=== PATIENT | female | born 1965 | race Caucasian/White ===

== ENCOUNTER 2019-11-12 00:20 | Day surgery (SDC) | payer OTHER, SELFPAY ==
[2019-11-10 13:47] VITALS: BMI 24.5
[2019-11-12 07:49] VITALS: BP 155/83; PULSE 80; RESP 18; TEMP 36.7; O2SAT 100
--- NOTE | 2019-11-12 07:56 | P.HP_ITS ---
History of Present Illness History of Present Illness Consent: Risks, benefits, and alternatives have been discussed and questions answered. Patient agrees to proceed with procedure. Chief complaint: Neoplasm Screening Narrative: Lupe Maxwell is a 54 year old W female referred for screening colonoscopy secondary to family history of colon polyps in her mother. She states her father had melanoma of the colon. Patient is asymptomatic. Her last colonoscopy was 5 years ago no polyps were seen. I also recommended the patient stop the Zantac and switched to Pepcid. PMFSH Surgical History Surgical History [place] teeth extracted Meds Home Medications and Allergies Home Medications Medication Instructions Recorded Confirmed Type bupropion HCl 150 mg PO BID 11/10/19 11/10/19 History estrogens-methyltestosterone 1 tablet PO DAILY 11/10/19 11/10/19 History medroxyprogesterone 2.5 mg PO DAILY 11/10/19 11/10/19 History pseudoephedrine HCl [Sudafed 12 120 mg PO Q12H 11/10/19 11/10/19 History Hour] ranitidine HCl 150 mg PO DAILY 11/10/19 11/10/19 History valacyclovir 500 mg PO DAILY 11/10/19 11/10/19 History Allergies Allergy/AdvReac Type Severity Reaction Status Date / Time latex Allergy Unknown Flushing Verified 11/12/19 07:58 tetracycline Allergy Unknown Vomiting Verified 11/12/19 07:58 ZOMAX Allergy Severe BLEEDING Uncoded 11/12/19 07:58 CODIENE AdvReac Unknown NAUSEA & Uncoded 11/12/19 07:58 VOMITING Vital Signs Vital Signs - 24 hr 11/12/19 07:49 Temperature 36.7 C Pulse Rate 80 Respiratory Rate 18 Blood Pressure 155/83 H Pulse Oximetry 100 Exam Const: Orientation/consciousness: patient oriented x3 Resp: Auscultation: clear to auscultation bilaterally Cardio: Rate: regular rate Rhythm: regular rhythm Heart sounds: no murmurs GI: GI Palp: Yes Soft to palpation, No Tenderness to palpation present (GI), Yes No hepatosplenomegaly present and No Palpable mass present Auscultation: normal bowel sounds Neuro: General: patient oriented x3 and no focal motor deficits Extrem: General: no pedal edema Assessment and Plan Additional Plan Screening colonoscopy secondary family history of colon polyps
--- NOTE | 2019-11-12 07:59 | P.PNAN_ITS ---
Anes - Initial Pre Proc Eval Procedure: Operation Date: 11/12/19 09:00 Proposed Procedures p Screening Colonoscopy - Gustavo Tinoco MD Date/Time: 11/12/19 07:59 Surgeon: Gustavo Tinoco MD Pre Op Diagnosis: Neoplasm Screening Patient Data Age: 54 Gender: F Height: 1.6 m Weight: 64 kg Last Vital Signs Temp 36.7 C 11/12/19 07:49 Pulse 80 11/12/19 07:49 Resp 18 11/12/19 07:49 BP 155/83 H 11/12/19 07:49 Pulse Ox 100 11/12/19 07:49 Allergies Allergy/AdvReac Type Severity Reaction Status Date / Time latex Allergy Unknown Flushing Verified 11/12/19 07:58 tetracycline Allergy Unknown Vomiting Verified 11/12/19 07:58 ZOMAX Allergy Severe BLEEDING Uncoded 11/12/19 07:58 CODIENE AdvReac Unknown NAUSEA & Uncoded 11/12/19 07:58 VOMITING Home Medications Medication Instructions Recorded Confirmed Type bupropion HCl 150 mg PO BID 11/10/19 11/12/19 History estrogens-methyltestosterone 1 tablet PO DAILY 11/10/19 11/10/19 History medroxyprogesterone 2.5 mg PO DAILY 11/10/19 11/10/19 History pseudoephedrine HCl [Sudafed 12 120 mg PO Q12H 11/10/19 11/10/19 History Hour] ranitidine HCl 150 mg PO DAILY 11/10/19 11/10/19 History valacyclovir 500 mg PO DAILY 11/10/19 11/12/19 History Patient hx anesthesia problems: none Family hx anesthesia problems: none PMFSH Past Medical History Medical History (Updated 11/12/19 @ 08:00 by Jon Maldonado MD) Depression Surgical History Surgical History [place] teeth extracted Anes - Eval Final PreProcedure Day of Procedure 11/12/19 07:59 Patient weight: normal Heart: regular rate and rhythm Lungs: clear to auscultation and normal air movement Airway: Mallampati scale class II Neurological: alert and oriented Last oral intake: >/= 8 hours ASA classification: II Emergent: no Anesthetic plan: proceed Anesthesia type and monitoring: general GIVS Informed Consent: The patient's anesthetic plan and its attendant risks and benefits were discussed with the patient/family/POA. Questions were solicited an d answers provided to the satisfaction of the patient/family/POA.
[2019-11-12] MEDS: LACTATED RINGERS 1,000 ML 150 ML IV CONT (08:14)
[2019-11-12 09:11] VITALS: BP 88/53; PULSE 78; RESP 20; O2SAT 99
[2019-11-12 09:21] VITALS: BP 113/79; PULSE 78; RESP 30; O2SAT 100
[2019-11-12 09:31] VITALS: BP 120/78; PULSE 74; RESP 20; O2SAT 100
== END 2019-11-12 09:45 | disposition home or self-care (01) ==
PROVIDERS: PCP Family Medicine; Visit Provider Internal Medicine Gastroenterology
PROC: 0DJD8ZZ Inspection of Lower Intestinal Tract, Via Natural or Artificial Opening Endoscopic (ICD-10-PCS; CPT 45378; principal; 2019-11-12 09:00)
DX: Z12.11 Encounter for screening for malignant neoplasm of colon (principal); K63.5 Polyp of colon; Z83.71 Family history of colonic polyps; F32.9 Major depressive disorder, single episode, unspecified
CPT/HCPCS: 45380; 88305; J2704; J7120

== ENCOUNTER 2020-05-19 07:56 | Outpatient (CLI) | payer OTHER, SELFPAY ==
--- NOTE | ~2020-05-19 | MM_ITS ---
EXAMINATION: MM screening [facility] w macy HISTORY: Screening TECHNIQUE: Craniocaudal and mediolateral oblique 3-D tomosynthesis images were obtained and synthetic 2-D images were generated. CAD analysis was submitted and interpreted. COMPARISON: Comparison to multiple prior studies sequentially, with oldest reviewed study dated 10/2013. BREAST PARENCHYMAL COMPOSITION: The breasts are heterogeneously dense, which may obscure small masses . FINDINGS: There is no evidence of suspicious mass, calcification, or architectural distortion to sugg est malignancy in either breast. There has been no suspicious interval change. IMPRESSION: 1. No mammographic evidence of malignancy. 2. Recommend routine screening mammography in one year. BI-RADS Category 1: Negative Reviewed, dictated and finalized at location A.
== END 2020-05-19 07:57 | disposition home or self-care (01) ==
PROVIDERS: PCP Family Medicine; Visit Provider Family Medicine
DX: Z12.31 Encounter for screening mammogram for malignant neoplasm of breast (principal)
CPT/HCPCS: 77063; 77067

== ENCOUNTER 2021-06-01 07:12 | Outpatient (CLI) | payer OTHER, SELFPAY ==
--- NOTE | ~2021-06-01 | MM_ITS ---
EXAMINATION: MM screening [facility] BI w macy HISTORY: Screening mammogram TECHNIQUE: Craniocaudal and mediolateral oblique 3-D tomosynthesis images were obtained and synthetic 2-D images were generated. CAD analysis was submitted and interpreted. COMPARISON: Serial mammographic examinations dating back to 03/28/2017 BREAST PARENCHYMAL COMPOSITION: The breasts are heterogeneously dense, which may obscure small masses . FINDINGS: There is no evidence of suspicious mass, calcification, or architectural distortion to sugg est malignancy in either breast. There has been no suspicious interval change. IMPRESSION: 1. No mammographic evidence of malignancy. 2. Recommend routine screening mammography in one year. BI-RADS Category 1: Negative Reviewed, dictated and finalized at location A.
== END 2021-06-01 07:13 | disposition home or self-care (01) ==
LOC: ANHIMG 07:14
PROVIDERS: PCP Family Medicine; Visit Provider Family Medicine
DX: Z12.31 Encounter for screening mammogram for malignant neoplasm of breast (principal)
CPT/HCPCS: 77063; 77067

== ENCOUNTER 2022-08-09 08:09 | Outpatient (CLI) | payer OTHER, SELFPAY ==
--- NOTE | ~2022-08-09 | MM_ITS ---
EXAMINATION: MM screening [facility] BI w macy HISTORY: Screening mammogram TECHNIQUE: Craniocaudal and mediolateral oblique 3-D tomosynthesis images were obtained and synthetic 2-D images were generated. CAD analysis was submitted and interpreted. COMPARISON: 06/01/2021, 05/19/2020, 04/23/2019 BREAST PARENCHYMAL COMPOSITION: The breasts are heterogeneously dense, which may obscure small masses . FINDINGS: No suspicious mass, calcification, or architectural distortion are identified in either liane ast to suggest malignancy. There has been no suspicious interval change. IMPRESSION: 1. No mammographic evidence of malignancy. 2. Recommend routine screening mammography in one year. BI-RADS Category 1: Negative Reviewed, dictated and finalized at location A. 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
== END 2022-08-09 08:10 | disposition home or self-care (01) ==
LOC: ANHIMG 08:10
PROVIDERS: PCP Family Medicine; Visit Provider Family Medicine
DX: Z12.31 Encounter for screening mammogram for malignant neoplasm of breast (principal)
CPT/HCPCS: 77063; 77067

== ENCOUNTER 2023-05-16 02:59 | Day surgery (SDC) | payer OTHER, SELFPAY ==
[2023-05-07 11:04] VITALS: BMI 24.2
--- NOTE | 2023-05-15 13:54 | P.HP_ITS ---
History of Present Illness History of Present Illness Consent: Risks, benefits, and alternatives have been discussed and questions answered. Patient agrees to proceed with procedure. Chief complaint: neoplasm screening Narrative: Lupe Maxwell is a 57 year old female Here for follow-up of an adenomatous polyp. Three years ago she underwent colonoscopy and was found apparently to have polypoid thickening of appendiceal orifice. Biopsies were obtained that d id confirm polypoid tissue consistent with SSA. Review of Systems Review of Systems: All systems reviewed & are unremarkable except as noted in HPI and below PMFSH Past Medical History Medical History Depression History of asthma Surgical History Surgical History H/O colonoscopy [place] teeth extracted Family History Family History Father Hypertension Lung cancer Malignant neoplasm of prostate COPD (chronic obstructive pulmonary disease) Mother Heart disease History of colon resection History of hypothyroidism Grandparent Lung cancer Bone cancer Unknown Hypertension Social History Social History Smoking status: Former smoker Tobacco type: cigarettes Alcohol intake: current Drinks per week: 6 Alcohol use details: 2 glasses of wine a few times a week Substance use: never Substance use type: does not use Living arrangements: with family Occupation/Education: occupation 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 Gender identity (if verbalized by the patient): Female Spiritual care concerns: No Meds Home Medications and Allergies Home Medications Medication Instructions Recorded Confirmed Type bupropion HCl 150 mg tablet,12 hr 150 mg PO BID 11/10/19 05/07/23 History sustained-release valacyclovir 500 mg tablet 500 mg PO DAILY 11/10/19 05/07/23 History cimetidine 200 mg tablet 200 mg PO DAILY 05/07/23 05/07/23 History fexofenadine 180 mg tablet 180 mg PO DAILY 05/07/23 05/07/23 History valsartan 160 1 tablet PO DAILY 05/07/23 05/07/23 History mg-hydrochlorothiazide 12.5 mg tablet Allergies Allergy/AdvReac Type Severity Reaction Status Date / Time latex Allergy Unknown Flushing Verified 05/16/23 06:47 tetracycline Allergy Unknown Vomiting Verified 05/16/23 06:47 ZOMAX Allergy Severe BLEEDING Uncoded 05/16/23 06:47 CODIENE AdvReac Unknown NAUSEA & Uncoded 05/16/23 06:47 VOMITING Exam Const: General: alert Orientation/consciousness: patient oriented x3 Resp: Auscultation: clear to auscultation bilaterally Cardio: Rhythm: regular rhythm GI: GI Palp: Yes Soft to palpation and No Tenderness to palpation present (GI) Neuro: General: patient oriented x3 Assessment and Plan Assessment and plan (1) Personal history of colonic polyps: Code(s): Z86.010 - Personal history of colonic polyps Status: Acute Assessment and Plan: Colonoscopy with possible biopsy or polypectomy or cautery or injection of substances.
[2023-05-16 06:48] VITALS: BP 144/80; PULSE 71; RESP 20; TEMP 36.2; O2SAT 100
[2023-05-16] MEDS: LACTATED RINGERS 1,000 ML 150 ML IV CONT (07:07)
--- NOTE | 2023-05-16 07:31 | WPDANESEPPF ---
Anes - Initial Pre Proc Eval Procedure: Operation Date: 05/16/23 08:00 Proposed Procedures p Screening Colonoscopy - Brice Salcedo MD Date/Time: 05/16/23 07:31 Surgeon: Brice Salcedo MD Pre Op Diagnosis: neoplasm screening Patient Data Age: 57 Gender: F Height: 1.6 m Weight: 62 kg Last Vital Signs Temp 97.1 F L 05/16/23 06:48 Pulse 71 05/16/23 06:48 Resp 20 05/16/23 06:48 BP 144/80 H 05/16/23 06:48 Pulse Ox 100 05/16/23 06:48 O2 Del Method Room Air 05/16/23 06:48 Allergies Allergy/AdvReac Type Severity Reaction Status Date / Time latex Allergy Unknown Flushing Verified 05/16/23 06:47 tetracycline Allergy Unknown Vomiting Verified 05/16/23 06:47 ZOMAX Allergy Severe BLEEDING Uncoded 05/16/23 06:47 CODIENE AdvReac Unknown NAUSEA & Uncoded 05/16/23 06:47 VOMITING Home Medications Medication Instructions Recorded Confirmed Type bupropion HCl 150 mg tablet,12 hr 150 mg PO BID 11/10/19 05/07/23 History sustained-release valacyclovir 500 mg tablet 500 mg PO DAILY 11/10/19 05/07/23 History cimetidine 200 mg tablet 200 mg PO DAILY 05/07/23 05/07/23 History fexofenadine 180 mg tablet 180 mg PO DAILY 05/07/23 05/07/23 History valsartan 160 1 tablet PO DAILY 05/07/23 05/07/23 History mg-hydrochlorothiazide 12.5 mg tablet Patient hx anesthesia problems: none Family hx anesthesia problems: none Results Review: All pre-operative results and documents have been reviewed as part of the pre-operative evaluation. PMFSH Past Medical History Medical History Depression History of asthma Surgical History Surgical History H/O colonoscopy [place] teeth extracted Family History Family History Father Hypertension Lung cancer Malignant neoplasm of prostate COPD (chronic obstructive pulmonary disease) Mother Heart disease History of colon resection History of hypothyroidism Grandparent Lung cancer Bone cancer Unknown Hypertension Social History Social History Smoking status: Former smoker Tobacco type: cigarettes Alcohol intake: current Drinks per week: 6 Alcohol use details: 2 glasses of wine a few times a week Substance use: never Substance use type: does not use Living arrangements: with family Occupation/Education: occupation 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 Informed Consent: The patient's anesthetic plan and its attendant risks and benefits were discussed with the patient/family/POA. Questions were solicited and answers provided to the satisfaction of the patient/family/POA.
[2023-05-16 08:10] VITALS: BP 104/64; PULSE 72; RESP 25; O2SAT 98
[2023-05-16 08:20] VITALS: BP 119/69; PULSE 74; RESP 19; O2SAT 100
[2023-05-16 08:30] VITALS: BP 121/80; PULSE 68; RESP 19; O2SAT 100
== END 2023-05-16 08:34 | disposition home or self-care (01) ==
PROVIDERS: PCP Family Medicine; Visit Provider Internal Medicine Gastroenterology
PROC: 0DJD8ZZ Inspection of Lower Intestinal Tract, Via Natural or Artificial Opening Endoscopic (ICD-10-PCS; CPT 45378; principal; 2023-05-16 08:00)
DX: Z12.11 Encounter for screening for malignant neoplasm of colon (principal); Z86.010 Personal history of colon polyps; Z80.0 Family history of malignant neoplasm of digestive organs; F32.A Depression, unspecified; Z87.891 Personal history of nicotine dependence
CPT/HCPCS: 45378; J2371; J7120

== ENCOUNTER → 2023-08-15 15:59 | Outpatient (CLI) | payer OTHER, SELFPAY ==
--- NOTE | ~2023-08-15 | MM_ITS ---
EXAMINATION: MM screening [facility] BI w macy HISTORY: Screening TECHNIQUE: Craniocaudal and mediolateral oblique 3-D tomosynthesis images were obtained and synthetic 2-D images were generated. CAD analysis was submitted and interpreted. COMPARISON: Comparison to multiple prior studies sequentially, with oldest reviewed study dated 03/28. BREAST PARENCHYMAL COMPOSITION: . The breasts are heterogeneously dense, which may obscure small mass es FINDINGS: There is no evidence of suspicious mass, calcification, or architectural distortion to sugg est malignancy in either breast. There has been no suspicious interval change. IMPRESSION: 1. No mammographic evidence of malignancy. 2. Recommend routine screening mammography in one year. BI-RADS Category 1: Negative Reviewed, dictated and finalized at location A. 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
== END ==
PROVIDERS: PCP Family Medicine; Visit Provider Family Medicine
DX: Z12.31 Encounter for screening mammogram for malignant neoplasm of breast (principal)
CPT/HCPCS: 77063; 77067

== ENCOUNTER 2024-08-20 08:25 | Outpatient (CLI) | payer OTHER, SELFPAY ==
--- NOTE | ~2024-08-20 | MM_ITS ---
EXAMINATION: MM screening [facility] w macy HISTORY: Screening TECHNIQUE: Craniocaudal and mediolateral oblique 3-D tomosynthesis images were obtained and synthetic 2-D images were generated. CAD analysis was submitted and interpreted. COMPARISON: Comparison to multiple prior studies sequentially, with oldest reviewed study dated 04/03. BREAST PARENCHYMAL COMPOSITION: Dense: The breasts are heterogeneously dense, which may obscure small masses FINDINGS: There is no evidence of suspicious mass, calcification, or architectural distortion to sugg est malignancy in either breast. There has been no suspicious interval change. IMPRESSION: 1. No mammographic evidence of malignancy. 2. Recommend routine screening mammography in one year. BI-RADS Category 1: Negative Reviewed, dictated and finalized at location B. 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
== END 2024-08-20 08:26 | disposition home or self-care (01) ==
PROVIDERS: PCP Nurse Practitioner; Visit Provider Nurse Practitioner
DX: Z12.31 Encounter for screening mammogram for malignant neoplasm of breast (principal)
CPT/HCPCS: 77063; 77067

== ENCOUNTER 2025-08-26 08:13 | Outpatient (CLI) | payer OTHER, SELFPAY ==
--- NOTE | ~2025-08-26 | MM_ITS ---
EXAMINATION: MM screening nito BI w macy HISTORY: Screening TECHNIQUE: Craniocaudal and mediolateral oblique 3-D tomosynthesis images were obtained and synthetic 2-D images were generated. CAD analysis was submitted and interpreted. COMPARISON: Comparison to multiple prior studies sequentially, with oldest reviewed study dated 04/23/2019. BREAST PARENCHYMAL COMPOSITION: Dense: The breasts are heterogeneously dense, which may obscure small masses FINDINGS: There is no evidence of suspicious mass, calcification, or architectural distortion to suggest malignancy in either breast. There has been no suspicious interval change. IMPRESSION: 1. No mammographic evidence of malignancy. 2. Recommend routine screening mammography in one year. BI-RADS Category 1: Negative Reviewed, dictated and finalized at location [facility]
--- OUTSIDE RECORDS SUMMARY | 2025-08-26 08:21 | XMS_ITS | Clinical Summary ---
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 Name Role Phone CantrellNabila HEAD ANIMAL TRAINER Primary Care Provider [phone] Allergies Active Allergy Reactions Criticality Noted Date Comments Codeine Vomiting Low 12/23/2019 Latex Itching Low 12/23/2019 Tetracycline Vomiting Low 12/23/2019 Medications diphenhydrAMINE (diphenhydrAMINE ) 25 mg capsule Take 1 tablet/capsul e (25 mg total) by mouth nightly as needed for itching Active famotidine (PEPCID) 10 mg tabletIndication s:Gastroesophage al reflux disease without esophagitis Take 1 tablet (10 mg total) by mouth daily Takes in the morning 90 tablet 3 4 Active fexofenadine (JOANN) 180 mg tabletIndication s:Environmental and seasonal allergies Take 1 tablet (180 mg total) by mouth daily 90 tablet 3 4 Active albuterol HFA (PROVENTIL HFA,VENTOLIN HFA,PROAIR HFA) 90 mcg/actuation inhalerIndicatio ns:Environmental and seasonal allergies Inhale 2 puffs every 6 (six) hours as needed for wheezing 3 each 4 4 Active valACYclovir (VALTREX) 1 gram tabletIndication s:Prophylaxis, Medical Take 1 tablet (1,000 mg total) by mouth daily Take 2 tabs (2000 mg) 2 times a days for 1 day. 90 tablet 3 5 Active hydroCHLOROthiaz liberty (HYDRODIURIL) 25 mg tabletIndication s:Hypertension, essential Take 1 tablet (25 mg total) by mouth daily 90 tablet 3 5 04/13/20 26 Active buPROPion SR (WELLBUTRIN SR) 150 mg 12 hr tabletIndication s:Recurrent major depressive disorder, in partial remission Take 1 tablet (150 mg total) by mouth 2 (two) times a day 180 tablet 3 5 04/13/20 26 Active Active Problems Problem Noted Date Diagnosed Date Environmental and seasonal allergies 01/07/2024 Assessment & Plan (01/07/2024 11:25 AM CDT): Chronic, generally controlled Continue Joann daily and Albuterol as needed Gastroesophageal reflux disease without esophagi tis 01/07/2024 Assessment & Plan (01/07/2024 11:25 AM CDT): Chronic, stable, well controlled Continue Famotidine 10 mg daily and Zofran as needed Recurrent major depressive disorder, in partial remission 01/07/2024 Assessment & Plan (01/07/2024 11:24 AM CDT): Chronic, stable, well controlled Continue Wellbutrin 150 mg BID Disseminated cutaneous herpe s simplex virus (HSV) 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 01/07/2024 Assessment & Plan (01/07/2024 11:26 AM CDT): Chronic, stable, well controlled Continue Valacyclovir 1 gm daily Hypertension, essential 01/07/2024 Assessment & Plan (01/07/2024 11:24 AM CDT): Chronic, stable, generally well controlled BP at visit mildly elevated at 142/82; had been coughing Continue HCTZ 25 mg daily Acute cough 01/07/2024 Assessment & Plan (01/07/2024 11:27 AM CDT): Concern for mold in office; cough/sob while in office Symptoms will resolve about 24 hours after being off work but return as soon as she returns to work CXR ordered Atypical squamous cells of u ndetermined significance (ASCUS) on Papanicolaou smear of cervix 12/30/2023 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 The biopsied serrated adenoma was completely removed within the appendix specimen. No heavy lifting greater than 20 lb for 4 weeks. No submerging incisions for 4 weeks. Patient will call back with any further questions or concerns. She can follow back up with her GI doctor to discuss the timing of her next colonoscopy. Assessment & Plan (12/23/2019 10:13 AM CDT): I think it would be reasonable for the patient to repeat a quick follow-up colonoscopy in 3-6 months to re-evaluate the appendiceal orifice. However given her family history of colon cancer she wanted something a little bit more definitive. I have discussed that based on the colonoscopy pictures the adenoma is localized just to the appendiceal orifice. If we are able to take just a healthy rim of cecum along with the appendix this should be enough for negative margins. Only if something unexpected within the specimen is found would we have to go back and do a formal right colectomy. I have discussed with the patient that if the appendix is too close to the terminal ileum and it appears that we may narrow this we may have to do an ileocecectomy to remove the appendix. She is in understanding. We will set her up for this in the next 4-6 weeks we are allowed to schedule elective cases. She is in understanding. Postoperative risks were explained. Postoperative restrictions were also gone over. 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 Asthma as a child Cancer (HCC) basal cell remov ed from back GERD (gastroesophageal reflux disease) 14 yrs ag o Hypertension 11/27 Subconjunctival hemorrhage 12/30/2023 Family History Medical History Relation Name Comments COPD Father Fabricio Harrison Cancer Father Fabricio Harrison Heart attack Father Fabricio Harrison Heart disease Father Fabricio Harrison Hypertension Father Fabricio Harrison Heart disease Mother Carina Harrison Hypothyroidism Mother Carina Harrison Relation Name Status Comments Father Fabricio Harrison Mother Carina Harrison Social History Tobacco Use Types Packs/Day Years Used Date Smoking Tobacco: Former Cigarettes Q uit: 07/08/1997 Smokeless Tobacco: Never Tobacco Cessation:Counseling Given: Not Answered Alcohol Use Standard Drinks/Week Comments Yes 0 (1 standard drink = 0.6 oz pur e alcohol) Glass of wine a day AUDIT-C Answer Date Recorded Q1: How often do you have a drink containing alcohol? 4 or more times a week 01/07/2024 Q2: How many drinks containi ng alcohol do you have on a typical day when you are drinking? 1 or 2 Q3: How often do you have si x or more drinks on one occasion? 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 Gender Identity Not on file Sexual Orientation Not on file Occupation Industry Job Start Date Job End Date [employer] Not on file Not on file Not on file Last Filed Vital Signs Vital Sign Reading Time Taken Comments Blood Pressure 130/80 04/29/2025 8:00 AM CDT Pulse 79 04/29/2025 8:00 AM CDT Temperature 36.8 C (98.3 F) 04/29/2025 8:00 AM CDT Respiratory Rate 18 04/29/2025 8:00 AM CDT Oxygen Saturation 98% 04/29/2025 8:00 AM CDT Inhaled Oxygen Concentration - - Weight 59 kg (130 lb) 04/29/2025 8:00 AM CDT Height 160 cm (5' 3) 04/29/2025 8:00 AM CDT Body Mass Index 23.03 04/29/2025 8:00 AM CDT Plan of Treatment Health Maintenance Due Date Last Done Comments Hepatitis C Screening 1965 DTaP/Tdap/Td Vaccine (1 - Tdap) 1975 Hepatitis B Screening 1982 Zoster Vaccine (1 of 2) 2014 Covid-19 Vaccine (3 - season) 2025 10/10/2020, 09/12/2020 Influenza Vaccine (#1) 2025 , 06/17/2022, 06/21/2021, Additional history exists Breast Cancer Screening-Mammogram 08/20/2025 08/20/2024, 08/18/2023, 08/08/2023, Additional history exists Depression Screening 04/29/2026 04/29/2025, 04/23/2024, 01/07/2024 Regular Well Visit/Exam 18-64 04/29/2026 04/29/2025, 04/23/2024 Colon Cancer Screening-Colonoscopy 05/16/2028 05/16/2023, 05/09/2023, 11/12/2019 Cervical Cancer Screening 04/29/20302024, 04/29/2025, 04/23/2024, Additional history exists Colon Cancer Screening-CT Colonography Discontinued 05/16/2023, 11/12/2019 Colon Cancer Screening-DNA Stool Discontinued 05/16/2023, 11/12/2019 Colon Cancer Screening-FIT Discontinued 05/16/2023, Colon Cancer Screening-Sigmoidoscopy Discontinued 05/16/2023, 11/12/2019 Pneumococcal vaccine <65 Aged Out No longer eligible based on patient's age to complete this topic Procedures Procedure Name Priority Date/Time Associated Diagnosis Comments HIGH RISK HPV DNA DETECTION WITH GENOTYPING Routine 04/29/2025 8:21 AM CDT Well woman exam SCREENING MAMMOGRAM BILATERAL W SAMIR Schedule Routine, Read Routine (OP Routine) 08/20/2024 1:42 PM ASSORTER LAUNDRY Screening mammogram for breast cancer HM COLONOSCOPY Routine 05/16/2023 from Last 3 Months or Most Recently Relevant to Health Maintenance Results * High Risk HPV DNA Detection with Genotyping (Molecular component) (04/29/2025 8:21 AM CDT) HPV HR 16 Not Detected Not Detected [facility] Comment:Testing performed by : [facility], [address] [place]., [address] HPV HR 18 Not Detected Not Detected [facility] Comment:Testing performed by : [facility], [address] [place]., [address] HPV HR Non 16/18 Not Detected Not Detected [facility] Comment: Interpretive Data Nucleic acid amplification for detection of high-risk Human Papilloma virus (HPV) is performed by the Kae Manjinder 6800 HPV test. This assay specifically detects HPV-16 and HPV-18 genotypes. The following HPV genotypes are detected as high-risk HPV: HPV-31, 33, 35, ,39, 45, 51, 52, 56, 58, 59, 66, and 68. This assay has been approved by the [place] Food and Drug Administration for detection of HPV in cervical specimens collected by a physician using an endocervical brush/spatula or cervical broom and placed in the ThinPrep Pap Test PreservCyt collection containers. The performance characteristics of this test have been verified by the [facility] laboratory. Correlate with separately reported cytology results, as applicable. Interpretive data last revised 23 Testing performed by: [facility], [address] [place] [address]., [id number] Endocervical 04/29/2025 8:21 AM CDT 05/02/2025 4:31 PM CDT Narrative [facility] - 05/02/2025 10:08 PM CDT Clinical history and diagnosis->[facility] Testing type->Screening Last menstrual period (date if known)->07/22/2014 Menstrual status->Postmenopausal us Nabila Cantrell NP LAB BODY FLUIDS AND STOOLS ORDER DEV Final Result [facility] [id number] [place] [address] [facility] * SCREENING MAMMOGRAM BILATERAL W SAMIR (08/20/2024 1:42 PM ASSORTER LAUNDRY) Anatomical Region Laterality Modality Breast Bilateral Mammography Nabila Cantrell NP IMG MAMMO PROCEDURES Final Resul t * HM COLONOSCOPY (05/16/2023) Scribed Colonoscopy Normal Historical Provider MD HEALTH MAINTENANCE Final Result from Last 3 Months or Most Recently Relevant to Health Maintenance Insurance [employer] PPO [facility] [employer] HMO Care Teams Landscape Architecture Teacher Relationship Specialty Start Date End Date Nabila Cantrell NP PCP - General Family Medicine 01/07/24
== END 2025-08-26 08:14 | disposition home or self-care (01) ==
LOC: ANHFOHIMG 08:16
PROVIDERS: PCP Nurse Practitioner; Visit Provider Nurse Practitioner
DX: Z12.31 Encounter for screening mammogram for malignant neoplasm of breast (principal)
CPT/HCPCS: 77063; 77067